=== PATIENT | female | born 1980 | race Caucasian/White ===

== ENCOUNTER → 2018-06-25 | Outpatient (CLI) | payer OTHER ==
--- NOTE | 2018-06-25 11:49 | RAD ---
2 views left hip 06/25/2018 11:37 AM Indication: LEFT HIP PAIN,, no known injury Comparison: None available Findings: There is no acute fracture or dislocation. Articular surfaces are uninterrupted and smooth. Soft tissues are unremarkable. Impression: No evidence of acute osseous abnormality. Electronically signed by: Manjinder Ritter MD (06/25/2018 11:45 AM) [id number]
== END | disposition home or self-care (01) ==
LOC: PMG 11:26
PROVIDERS: ATTEND Family Medicine
DX: M25.552 Pain in left hip (principal)
CPT/HCPCS: 73502